=== PATIENT | female | born 2000 | race Caucasian/White ===

== ENCOUNTER 2022-04-06 19:14 | Emergency (ER) | payer OTHER, SELFPAY ==
[2022-04-06 19:28] VITALS: BP 128/81; PULSE 89; RESP 18; TEMP 37.1; O2SAT 100; BMI 41.6
--- NOTE | 2022-04-06 19:43 | ED.GENADULT ---
HPI - General Adult General Time Seen by Provider: 19:43 Date Seen: 04/06/22 Chief complaint: Abdominal Pain Stated complaint: Stomach & lower abdomin pain Time Seen by Provider: 04/06/22 19:40 Source: patient and RN notes reviewed Mode of arrival: ambulatory Limitations: no limitations History of Present Illness HPI narrative: Patient is a 21-year-old female coming in with nausea, no vomiting and significant diarrhea since Friday evening. She had some lower abdominal discomfort during the day on FridayApril 03. She did fine however until that evening when she develops significant nausea and diarrhea. Diarrhea has been nonbloody, no fevers. She does get some lower abdominal cramping and pain with the diarrhea. She has not been on any recent antibiotics, no travel, no history of C difficile colitis. She does milk dairy cattle, also goes to school. States she really has not been able to take any significant fluids in, has not been able to eat. She has only had 1 episode of urination today. She is feeling dehydrated, mom notes she was tearful prior to coming in which is not typical of her. Related Data Allergies Allergy/AdvReac Type Severity Reaction Status Date / Time No Known Drug Allergies Allergy Verified 04/06/22 19:27 Review of Systems Status of ROS: Reports: 6 or more systems reviewed and unremarkable except as noted in History and below PFSH PFS Social History Smoking Status: Never smoker Do you use any of these nicotine containing products: None Second hand tobacco smoke exposure: No How often do you have a drink containing alcohol: monthly or less How many standard drinks containing alcohol do you have on a typical day: 1 or 2 How often do you have six or more drinks on one occasion: Never AUDIT-C Alcohol total score: 1 Non-prescribed substance use: denies use service: No Exam Const: Vital Signs, click to edit/add: Vital Signs - 24 hr 04/06/22 19:28 04/06/22 20:29 Temperature 98.8 F Pulse Rate [Pulse Oximeter] 89 84 Respiratory Rate 18 20 Blood Pressure [Le ft Upper Arm] 128/81 116/70 Pulse Oximetry 100 100 Oxygen Delivery Me thod Room Air Room Air Documenting provider has reviewed patient's vital signs: yes Common normals: no apparent distress, oriented x3, no limitations, healthy appearing, alert and well nourished General appearance: cooperative, comfortable, well kempt and well developed Other: Overall is in no apparent distress but looks like she does not feel the best. Is pleasant with me, can speak in complete sentences. HENMT: Common normals: normocephalic, head/scalp atraumatic, hearing grossly normal bilaterally, external ears normal and nasal mucous membranes and turbinates normal Head and scalp: normocephalic and atraumatic Nose: nasal mucous membranes and turbinates normal External ear: external ears normal Other: No lesions in the oral mucosa or the tongue, membranes mildly dry but certainly lips are not cracked. Eye: Common normals: PERRL, EOMs intact bilaterally, conjunctivae normal and no scleral icterus Conjunctiva: conjunctiva(e) normal Pupil: PERRL Neck & C-Spine: Common normals: full ROM, no lymphadenopathy, supple, no meningeal signs, no JVD and thyroid normal Thyroid: thyroid normal Resp: Common normals: normal respiratory effort, no retractions, no use of accessory muscles and clear to auscultation bilaterally Auscultation: clear to auscultation bilaterally Cardio: Common normals: no JVD, regular rate, regular rhythm, S1 normal heart sound, S2 normal heart sound, no gallops, no clicks and no murmurs Rate: regular rate Rhythm: regular rhythm Heart sounds: S1 normal and S2 normal GI: Common normals: Normal to inspection, nondistended, normoactive bowel sounds present, soft to palpation, non-tender, no hepatosplenomegaly and no masses Palpation: soft and no hepatosplenomegaly Neuro: Common normals: oriented x3 Sensorium/orientation: alert Meningeal signs: no meningeal signs Psych: Appearance: well kempt Course Course Hospital Course: Will place an IV, obtain labs. She will get a L of normal saline and 4 mg IV Zofran. We reviewed that this likely is a viral gastroenteritis, will hold off any abdominal imaging at this time. Reevaluation(s) Reevaluation #1: Patient is feeling better, anti nausea medicine has worked. She has completed 1 L of fluids, still has not produced any urine. We will be obtaining a 2 L and will give her lactated Ringer's. She has relatively normal labs other than mildly reduced potassium of 3.3 which would go with her diarrheal illness. Discussed with him that I did not think any imaging would be necessary and actually radiation more harmful than the benefits we might obtain. I do think she has a viral gastroenteritis. They feel they have enough Zofran at home, decline a prescription tonight. Time: 20:59 Reevaluation #2: Patient has just a little over about 100 mL of her 2nd bag of IV fluids. She is starting to feel like she needs to urinate. If she does not urinate after the completion of this bag, will order another 500 mL bolus. Overall she is improved. Will discharged to home after we have completed her IV fluids. Time: 22:01 Vital Signs Vital signs: Initial Vital Signs Temperature 98.8 F 04/06/22 19:28 Temperature Source Temporal Artery Scan 04/06/22 19:28 Pulse Rate 89 04/06/22 19:28 Pulse Rhythm 04/06/22 19:28 Respiratory Rate 18 04/06/22 19:28 Blood Pressure 128/81 04/06/22 19:28 Blood Pressure Mean 96 04/06/22 19:28 Blood Pressure Position Sitting 04/06/22 19:28 Pulse Oximetry 100 04/06/22 19:28 Oxygen Delivery Method 04/06/22 19:28 Vital Signs Temperature 98.8 F 04/06/22 19:28 Pulse Rate 89 04/06/22 19:28 Respiratory Rate 18 04/06/22 19:28 Blood Pressure 128/81 04/06/22 19:28 Pulse Oximetry 100 04/06/22 19:28 Oxygen Delivery Method 04/06/22 19:28 Temperature 98.8 F 04/06/22 19:28 Pulse Rate 84 04/06/22 20:29 Respiratory Rate 20 04/06/22 20:29 Blood Pressure 116/70 04/06/22 20:29 Pulse Oximetry 100 04/06/22 20:29 Oxygen Delivery Method 04/06/22 20:29 Medical Decision Making Lab Data Lab results reviewed: Yes I reviewed the patient's lab results Labs: Lab Results 04/06/22 04/06/22 04/06/22 Range/Units 19:50 19:50 20:04 WBC 8.55 (4.50-11.00) K/uL RBC 4.86 (4.00-5.20) m/uL Hgb 13.5 (12.0-16.0) gm/dL Hct 40.1 (33.0-51.0) % MCV 83 (80-100) fL MCH 28 (26-34) pg MCHC 34 (32-36) gm/dL RDW Coeff of Josee 12.9 (11.5-15.5) % Plt Count 285 (140-440) K/uL Neut % (Auto) 68.0 (42.0-72.0) % Lymph % (Auto) 18.1 L (20-44) % Sterling % (Auto) 12.0 H (0.0-11.0) % Eos % (Auto) 1.6 (0.0-7.0) % Baso % (Auto) 0.2 (0.0-3.0) % Neut # (Auto) 5.80 (1.7-7.0) K/uL Lymph # (Auto) 1.50 (0.90-2.90) K/uL Sterling # (Auto) 1.00 H (0.00-0.90) K/UL Eos # (Auto) 0.14 (0.00-0.50) K/uL Baso # (Auto) 0.02 (0.00-0.30) K/uL Sodium 137 (135-149) mmol/L Potassium 3.3 L (3.6-5.1) mmol/L Chloride 105 (96-114) mmol/L Carbon Dioxide 25 (20-32) mmol/L BUN 9 (5-24) mg/dL Creatinine 0.6 (0.6-1.2) mg/dL Estimated Creat Clear 124.75 Estimated GFR 133 ml/min Glucose 91 (60-115) mg/dL Calcium 8.5 L (8.7-10.8) mg/dL Total Bilirubin 0.4 (0.1-1.5) mg/dL AST 25 (12-35) U/L ALT 21 (4-35) U/L Alkaline Phosphatase 75 (40-150) U/L C-Reactive Protein 2.8 H (0.5-1.0) mg/dL Total Protein 7.0 (6.0-8.3) g/dL Albumin 4.0 (3.3-5.0) g/dL SARS-CoV-2 (PCR) Negative SARS-CoV-2 (Negative) Influenza Type A (PCR) Negative PCR FLU A (Negative) Influenza Type B (PCR) Negative PCR FLU B (Negative) Critical Care Time Critical Care Time Critical Care Time: No Discharge Plan Discharge Clinical Impression: Gastroenteritis Patient Disposition: Home, Self-Care Condition: Stable Instructions: Gastroenteritis (ED), Nutrition Tips for Relief of Diarrhea (ED) Additional Instructions: Continue with Zofran at home as needed to help control nausea. Review handouts provided. Can increase your diet as tolerated with solid foods, follow the nutrition tips for relief of diarrhea handout. Drink frequent small sips of fluids to help you stay hydrated through this. If you are not improving over the next couple days, feel you are worsening at any point, do recommend re-evaluation. Activity Level: Activity as Tolerated Follow Up/Referrals: Belinda Ricci DO [Primary Care Provider] - Stand Alone Forms: v2 Ratingsth Info Instructions
[2022-04-06] MEDS: ONDANSETRON 2 MG/ML inj 4 MG IVP (20:04)
[2022-04-06] MEDS: 0.9 % SODIUM CHLORIDE 1000 ml 1,000 ML IV (20:04)
[2022-04-06 20:08] LABS: Basophils Absolute Auto 0.02 K/uL (0.00-0.30); Basophils Percent Auto 0.2 % (0.0-3.0); Eosinophils Absolute Auto 0.14 K/uL (0.00-0.50); Eosinophils Percent Auto 1.6 % (0.0-7.0); Hematocrit 40.1 % (33.0-51.0); Hemoglobin* 13.5 gm/dL (12.0-16.0); Immature Granulocytes Abs Auto 0.01 K/uL (0.00-0.30); Immature Granulocytes Pct Auto 0.1 %; Lymphocytes Percent Auto 18.1 % (20-44); Mean Corpuscular HGB Conc 34 gm/dL (32-36); Mean Corpuscular Hemoglobin 28 pg (26-34); Mean Corpuscular Volume 83 fL (80-100); Platelet Count* 285 K/uL (140-440); RDW Coefficient of Variation % 12.9 % (11.5-15.5); Red Blood Count 4.86 m/uL (4.00-5.20); White Blood Count* 8.55 K/uL (4.50-11.00)
[2022-04-06 20:10] LABS: Slide Review Reflex No
[2022-04-06 20:19] LABS: Chloride* 105 mmol/L (96-114)
[2022-04-06 20:20] LABS: Potassium* 3.3 mmol/L (3.6-5.1); Sodium* 137 mmol/L (135-149)
[2022-04-06 20:22] LABS: Creatinine* 0.6 mg/dL (0.6-1.2); Est. Creatinine Clearance* 124.75; Estimated Glomerular Filt Rate 133 ml/min
[2022-04-06 20:23] LABS: Alanine Aminotransferase* 21 U/L (4-35); Alkaline Phosphatase* 75 U/L (40-150); Aspartate Amino Transferase* 25 U/L (12-35); Bilirubin Total* 0.4 mg/dL (0.1-1.5); Blood Urea Nitrogen* 9 mg/dL (5-24); Calcium* 8.5 mg/dL (8.7-10.8); Carbon Dioxide* 25 mmol/L (20-32); Glucose* 91 mg/dL (60-115)
[2022-04-06 20:26] LABS: C Reactive Protein* 2.8 mg/dL (0.5-1.0)
[2022-04-06 20:29] VITALS: BP 116/70; PULSE 84; RESP 20; O2SAT 100
[2022-04-06 20:43] LABS: PCR FLU A Negative PCR FLU A (Negative); PCR FLU B Negative PCR FLU B (Negative)
[2022-04-06 20:45] LABS: SARS PCR* Negative SARS-CoV-2 (Negative)
[2022-04-06] MEDS: LACTATED RINGERS 1000 ML 1,000 ML IV (21:04)
== END 2022-04-06 22:34 | disposition home or self-care (01) ==
PROVIDERS: Emergency Provider Family Medicine; PCP Family Medicine
DX: K52.9 Noninfective gastroenteritis and colitis, unspecified (principal)
CPT/HCPCS: 36415; 80053; 85025; 86140; 87631; 96374; 99283; 99284; J2405; J7030; J7120

== ENCOUNTER 2024-10-03 15:34 | Emergency (ER) | payer OTHER, SELFPAY ==
--- OUTSIDE RECORDS SUMMARY | 2024-10-03 15:36 | XMS_ITS | Clinical Summary ---
Author Organization [employer] [facility] Address [address] [place] [id number] Care Team Providers Care Cottage Cheese Maker Name Role Phone Belinda Ricci DO Primary Care Provider [phone] Allergies Active Allergy Reactions Criticality Noted Date Comments Capsaicin *Unknown 10/20/2021 Camphor-Methyl Salicyl-Menthol Rash 03/01 Medications SUMAtriptan (IMITREX) 50 mg tabletIndications :Menstrual migraine with status migrainosus, not intractable Take 1 Tablet (50 mg) by mouth 2 times daily if needed for Migraine. Give at minimum 2hrs apart. Max Dose: 200mg per 24hrs. 10 Tablet 3 01/23/20 24 Active escitalopram oxalate (LEXAPRO) 10 mg tabletIndications :CHARLOTTE (generalized anxiety disorder) Take 1/2 tablet once daily for 1 week, then increase to 1 tablet once daily. 90 Tablet 3 03/11/19 25 Active hydrOXYzine HCL (ATARAX) 25 mg tabletIndications :Panic attack TAKE ONE OR TWO TABLETS BY MOUTH EVERY SIX HOURS NEEDED FOR ANXIETY 30 Tablet 2 03/11/19 25 Active ondansetron (ZOFRAN ODT) 4 mg disintegrating tabletIndications :Nausea and vomiting, unspecified vomiting type Place 1 Tablet (4 mg) on the tongue every 8 hours if needed for Nausea/Vomiting. 30 Tablet 1 03/11/19 25 Active omeprazole 40 mg Delayed-Release capsuleIndication s:Chronic GERD TAKE ONE CAPSULE BY MOUTH ONE TIME DAILY before a meal. 90 Capsule 07/08/19 25 Active HYDROcodone-aceta minophen (5-325 mg/tablet)Indicat ions:Injury of right shoulder, initial encounter Take 1 Tablet by mouth every 4 hours if needed for Pain. Max acetaminophen dose: 4000 mg in 24 hrs. 20 Tablet 08/06/19 25 Active naproxen 500 mg tabletIndications :Injury of right shoulder, initial encounter Take 1 Tablet (500 mg) by mouth every 12 hours if needed for Pain. 40 Tablet 08/06/19 25 025 Discontin ued(*Jenni ent states no longer taking) methylPREDNISolon e (Medrol (Adrian)) 4 mg tabletIndications :Type 1 superior labral uyhamxpb-zm-dxlxf rior (SLAP) tear of right shoulder, subsequent encounter Take by mouth as instructed per packaging. 21 Tablet 08/18/19 25 025 Discontin ued(*Jenni ent states no longer taking) trimethoprim-sulf amethoxazole 160-800 mg tabIndications:Ce llulitis of skin Take 1 Tablet by mouth two times daily for 10 days. 20 Tablet 09/09/19 25 025 Active Problems Problem Noted Date Diagnosed Date S/P carpal tunnel release 01/14/2023 Carpal tunnel syndrome of right wrist 08/19/2022 Carpal tunnel syndrome of left wrist 08/19/2022 POTS (postural orthostatic tachycardia syndrome) 06/07/2022 Menstrual migraine with status migrainosus, not intractable 06/07/2022 Generalized anxiety disorder 10/04/2020 Panic attack 10/04/2020 Encounters Date Type Department Care Team Description 09/09/2024 Travel 09/08/2024 7:10 AM CDT Office Visit [facility] [address] [place] [address] Noemi Lyons PA Leg Pain/problem (Right leg scrap x 2 weeks, red and pink. Constant pain, burning. Injured during softball. ) 09/08/2024 Travel 08/18/2024 10:20 AM CDT Procedure Only [facility] [address] [address] Benoit Jean MD Procedure (right shoulder biceps tendon sh... 08/18/2024 Travel 08/18/2024 Telephone [facility] [address] [address] Benoit Jean MD Appointment 08/17/2024 1:00 PM CDT [facility] [address] [facility] [address] [place] [address] Mello Carson MD Shoulder Pain/problem (right) 08/16/2024 Travel 08/11/2024 Orders Only [address] [address] Annelise Edmonds PA <No scans attached> 08/10/2024 4:15 PM CDT Ancillary Procedure [facility] [address] [facility] [address] [place] [address] 08/10/2024 Travel 08/06/2024 Travel 08/05/2024 2:15 PM CDT Ancillary Procedure [address] [address] 08/05/2024 1:50 PM CDT Office Visit [address] [address] Annelise Edmonds PA Shoulder Pain/problem (Hurt right shoulder Friday night during softball-heard a pop-had adjustment at chiro and was told pain would get better but getting worse-had swelling in arm also) 08/05/2024 Travel 08/05/2024 Nurse Triage [address] [address] Belinda Ricci, DO Shoulder Pain/problem 07/03/[address] [address] Annelise Edmonds PA Refill Request (Omeprazole) from Last 3 Months Immunizations Immunization Administration Dates Next Due DTaP 06/09/2007 DTaP-HIB (TriHIBIT) 08/27/2004 FNpS-GrhF-HSI (Pediarix) 04/22/2003,01/24/2003,1 HIB HbOC (HibTITER) 04/22/2003,01/24/2003,2002 HPV 9 (Gardasil 9) 06/07/2022,11/04/2019, 020 Hepatitis A (Peds) 10/19/2008,06/09/2007 Hepatitis B (Peds) 2002 Hepatitis B, Unspecified 2002 Inactivated Polio Vaccine 06/09/2007 Influenza Virus, Unspecified 10/19/2008 Influenza, IIV3 (Age 6-35 mos) 10/19/2008 Influenza,LAIV4 Live Intranasal (Flumist) 2013 MENINGOCOCCAL VACCINE 2 VIAL [id number] (MENVEO) 09/01/2019 MMR 11/07/2003 MMRV 06/09/2007 Meningococcal Vaccine (Menactra) 07/27/2014 Pneumococcal conj 7-Valent (Prevnar 7) 5,01/24/2003,2002 Tdap 07/27/2014 Varicella Vaccine 11/07/2003 Family History Medical History Relation Name Comments Good Health Father Aneurysm Maternal Grandfather on the wall of his heart Heart failure Maternal Grandfather Hypertension Maternal Grandfather Diabetes Maternal Grandmother Spondylolisthesis Mother Relation Name Status Comments Father Alive Maternal Grandfather Maternal Grandmother Mother Alive Sister 1 Alive Sister 2 Alive Social History Tobacco Use Types Packs/Day Years Used Date Smoking Tobacco: Never Smokeless Tobacco: Never Tobacco Cessation:Counseling Given: Yes Comments:No exposure Alcohol Use Standard Drinks/Week Comments Never 0 (1 standard drink = 0.6 oz pur e alcohol) PHQ-2 Answer Date Recorded PHQ-2 TOTAL SCORE 1 03/11/2024 Social Connections Answer Date Recorded Do you often feel lonely or isolated from those around you? 0 03/08/2024 Financial Resource Strain Answer Date R ecorded Difficulty of Paying Living Expenses 3 03/08/2024 Difficulty of Paying Living Expenses Not on file 03/08/2024 Food Insecurity Answer Date Recorded Do you worry your food will run out before you are able to buy more? 1 03/08/2024 Transportation Needs Answer Date Record ed Does lack of transportation keep you from medica l appointments? 1 03/08/2024 Does lack of transportation keep you from work, meetings or getting things that you need? 1 03/08/2024 Housing Stability Answer Date Recorded What is your housing situation today? 1 03/08/2024 Utilities Answer Date Recorded Do you have trouble paying f or utilities (for example, heat, electricity, water, phone)? 1 03/08/2024 Comments No Sex and Gender Information Value Date Recorded Sex Assigned at Not on file Legal Sex Female 4:26 PM CDT Gender Identity Not on file Sexual Orientation Not on file Obstetrics History Last Filed Vital Signs Vital Sign Reading Time Taken Comments Blood Pressure 131/76 09/08/2024 7:20 AM CDT Pulse 93 09/08/2024 7:20 AM CDT Temperature 36.8 C (98.3 F) 09/08/2024 7:20 AM CDT Respiratory Rate 16 09/11/2023 8:45 AM CDT Oxygen Saturation 99% 09/08/2024 7:20 AM CDT Inhaled Oxygen Concentration - - Weight 115.7 kg (255 lb) 09/08/2024 7:20 AM CDT Height 160 cm (5' 3) 09/08/2024 7:20 AM CDT Body Mass Index 45.17 09/08/2024 7:20 AM CDT Plan of Treatment Health Maintenance Due Date Last Done Comments HIV for age 15-65 2017 Hepatitis C screening for ag e 18-79 2020 Pneumococcal series for age 6-49 (1 of 2 - PCV) 2021 08/27/2004, 01/24/2003, 2002 Pap test for age 21-65 09/25/2023 COVID-19 vaccine series ( - season) 2023 Tetanus booster 07/27/2024 07/27/2014 Influenza Vaccine (#1) 2024 4, 10/19/2008, 10/19/2008 Depression screening for age 12+ 03/11/2025 03/11/2024, 09/08/2023, 07/08/2023, Additional history exists BMI (ht and wt on same day) for age 18+ 09/08/2025 09/08/2024, 06/07/2022, 05/21/2021, Additional history exists Hepatitis B series for 19+ Completed 04/21, 01/24/2003, 2002, Additional history exists HPV series for age 9-26 Completed 06/08/19 23, 11/04/2019, 09/01/2019 Procedures Procedure Name Priority Date/Time Associated Diagnosis Comments MR SHOULDER RIGHT WO BRANDI 08/10/2024 4:18 PM CDT Weakness of right shoulder XR SHOULDER 3 VIEWS RIGHT Routine 08/05/2024 2:28 PM CDT Injury of right shoulder, initial encounter from Last 3 Months Results * MR SHOULDER RIGHT WO (08/10/2024 4:18 PM CDT) Anatomical Region Laterality Modality SHOULDER R Magnetic Resonan ce 08/10/2024 6:24 PM CDT Impressions 08/10/2024 6:24 PM CDT 1. SLAP tear of the labrum. 2. Mild supraspinatus/infraspinatus and intra-articular long head of biceps tendinopathy. Dictated by Donald Tamez MD @ 08/10/2024 6:24:36 PM (Electronically Signed) Narrative 08/10/2024 6:24 PM CDT For Patients: As a result of the Cures Act, medical imaging exams and procedure reports are released immediately into your electronic medical record. You may view this report before your referring provider. If you have questions, please contact your health care provider. CLINICAL INDICATION: Right shoulder weakness in the context of trauma. COMPARISON IMAGING STUDIES: 08/05/2024 right shoulder radiographs TECHNICAL: Non-contrast MRI of the right shoulder. 1.5 Radha MR scanner. FINDINGS: GLENOHUMERAL JOINT: Effusion: Physiologic quantity of joint fluid. Humeral Head Articular Cartilage: Maintained. Glenoid Articular Cartilage: Maintained. Alignment: Maintained. Capsule: No capsular edema or abnormal capsular thickening. OSSEOUS STRUCTURES: No acute fracture. CORACOACROMIAL ARCH: Acromial Morphology: Type 2 acromial morphology. No abnormal lateral or anterior downward sloping of the acromion. No os acromiale. No significant subacromial spur. Lateral acromial thickness is 8 mm. Acromiohumeral Interval: At its narrowest, the interval measures 7 mm. No abnormal thickening of the coracoacromial ligament. Coracohumeral Interval: At its narrowest, the coracohumeral interval measures 13 mm. Coracoid index is 9 mm. ACROMIOCLAVICULAR JOINT REGION: AC joint intact. Coracoclavicular ligament intact. BURSAE: No abnormal bursal edema, thickening or bursal fluid. ROTATOR CUFF TENDONS AND MUSCLES AND DELTOID: Supraspinatus and Infraspinatus: Mild supraspinatus/infraspinatus tendinopathy. No muscular atrophy or edema. Teres Minor: No tendinosis, tendon tearing, muscle atrophy or muscle edema. Subscapularis: No tendinosis, tendon tearing, muscle atrophy or muscle edema. Deltoid: No muscle atrophy or edema. BICEPS TENDON, LONG HEAD: Mild intra-articular long head of biceps tendinopathy. No subluxation or dislocation of tendon from bicipital groove. GLENOID LABRUM: SLAP tear of the labrum (06/23). OTHER FINDINGS: There is no mass detected within the suprascapular or spinoglenoid notches nor within the quadrilateral space. No mass detected within the visualized portion of the axilla. Procedure Note Donald Tamez MD - 08/10/2024 For Patients: As a result of the Century Cures Act, medical imagingexams and procedure reports are released immediately into your electronicmedical record. You may view this report before your referring provider.If you have questions, please contact your health care provider. CLINICAL INDICATION: Right shoulder weakness in the context of trauma. COMPARISON IMAGING STUDIES: 08/05/2024 right shoulder radiographs TECHNICAL: Non-contrast MRI of the right shoulder. 1.5 Radha MR scanner. FINDINGS: GLENOHUMERAL JOINT: Effusion: Physiologic quantity of joint fluid. Humeral Head Articular Cartilage: Maintained. Glenoid Articular Cartilage: Maintained. Alignment: Maintained. Capsule: No capsular edema or abnormal capsular thickening. OSSEOUS STRUCTURES: No acute fracture. CORACOACROMIAL ARCH: Acromial Morphology: Type 2 acromial morphology. No abnormal lateral oranterior downward sloping of the acromion. No os acromiale. Nosignificant subacromial spur. Lateral acromial thickness is 8 mm. Acromiohumeral Interval: At its narrowest, the interval measures 7 mm. Noabnormal thickening of the coracoacromial ligament. Coracohumeral Interval: At its narrowest, the coracohumeral intervalmeasures 13 mm. Coracoid index is 9 mm. ACROMIOCLAVICULAR JOINT REGION: AC joint intact. Coracoclavicular ligament intact. BURSAE: No abnormal bursal edema, thickening or bursal fluid. ROTATOR CUFF TENDONS AND MUSCLES AND DELTOID: Supraspinatus and Infraspinatus: Mild supraspinatus/infraspinatustendinopathy. No muscular atrophy or edema. Teres Minor: No tendinosis, tendon tearing, muscle atrophy or muscleedema. Subscapularis: No tendinosis, tendon tearing, muscle atrophy or muscleedema. Deltoid: No muscle atrophy or edema. BICEPS TENDON, LONG HEAD: Mild intra-articular long head of biceps tendinopathy. No subluxation ordislocation of tendon from bicipital groove. GLENOID LABRUM: SLAP tear of the labrum (/). OTHER FINDINGS: There is no mass detected within the suprascapular or spinoglenoid notchesnor within the quadrilateral space. No mass detected within thevisualized portion of the axilla. IMPRESSION: 1. SLAP tear of the labrum. 2. Mild supraspinatus/infraspinatus and intra-articular long head ofbiceps tendinopathy. Dictated by Donald Tamez MD @ 08/10/2024 6:24:36 PM (Electronically Signed) us Annelise JACOB MR Final Resu lt * XR SHOULDER 3 VIEWS RIGHT (08/05/2024 2:28 PM CDT) Anatomical Region Laterality Modality SHOULDERS, SHOULDER R Computed R adiography 08/05/2024 2:32 PM CDT Narrative 08/05/2024 2:32 PM CDT For Patients: As a result of the 21st Century Cures Act, medical imaging exams and procedure reports are released immediately into your electronic medical record. You may view this report before your referring provider. If you have questions, please contact your health care provider. Indication: Injury of right shoulder, initial encounter. Technique: Right shoulder 3 views. Comparison: 08/18/2020 Findings: Bones: Alignment is normal. No fractures or bone lesions. Joint spaces: Unremarkable. Soft tissues: Unremarkable. Impression: No sign of acute injury. Dictated by Dedrick Tee MD @ 08/05/2024 2:32:30 PM (Electronically Signed) Procedure Note Dedrick Tee MD - 08/05/2024 For Patients: As a result of the Cures Act, medical imagingexams and procedure reports are released immediately into your electronicmedical record. You may view this report before your referring provider.If you have questions, please contact your health care provider. Indication: Injury of right shoulder, initial encounter. Technique: Right shoulder 3 views. Comparison: 08/18/2020 Findings: Bones: Alignment is normal. No fractures or bone lesions. Joint spaces: Unremarkable. Soft tissues: Unremarkable. Impression: No sign of acute injury. Dictated by Dedrick Tee MD @ 08/05/2024 2:32:30 PM (Electronically Signed) Annelise JAC[facility] GENERAL IMAGING Final Resu lt from Last 3 Months Insurance MEDICA CHOICE Advance Directives * Full Code (Latest Code Status on File) Date Activated Date Inactivated Comments 09/11/2023 6:27 AM 09/11/2023 12:08 PM Question Answer Comments Code Status Discussion: Reviewed Preferences * Full Code Date Activated Date Inactivated Comments 10/23/2022 6:28 AM 10/23/2022 11:01 AM Question Answer Comments Code Status Discussion: Reviewed Preferences * Full Code Date Activated Date Inactivated Comments 09/26/2022 8:29 AM 09/26/2022 1:01 PM Question Answer Comments Code Status Discussion: Reviewed Preferences Care Teams Cottage Cheese Maker Relationship Specialty Start Date End Date Belinda Ricci DO [address] [place] [address] PCP - General Family Practice 05/21/21
--- OUTSIDE RECORDS SUMMARY | 2024-10-03 15:36 | XMS_ITS | Clinical Summary ---
Author Organization [facility] Address [address] , [address] [place] [address] Phone Care Team Providers Care Marine Resource Economist Name Role Phone [facility] Unavailable Unava ilable Conditions or Problems Problem Name Problem Code Onset Date Status Entry Date Provider Comment Standard Description Annotate Hand numbness 331431730 (SNOMED CT) Active Jeison Mckeon MD Numbness of hand Other lesions of median nerve, bilateral upper limbs [id number] (SNOMED CT) Active Jeison Mckeon MD Lesion of median nerve Medications No information available. Medications Administered No information available. Allergies, Adverse Reactions, Alerts No information available. Results Date Name Value Unit Range Flag Description Lab Report: 08/18/20 - 02/20/21 ABSOLUTE MON 0.6 10*3/uL Monocyte s [#/volume] in Blood EGFR NOT AFA >60 mL/min/1.73m 2 Glomerular filtratio n rate/1.73 sq M.predicted among non-blacks [Volume Rate/Area] in Serum, Plasma or Blood by Creatinine-based formula (MDRD) ABS EOS 0.1 {Cells}/uL Eosinophil s [#/volume] in Blood CA 9.2 mg/dL Calcium [Mass /volume] in Serum or Plasma ABSOLUTE BAS normal 10*3/uL Basophil s [#/volume] in Blood ABS LYMPHOCY 2.1 10*3/uL Absolute Lymphocytes ABS NEUTROPH 4.8 10*3/uL Neutroph ils [#/volume] in Blood GFR >60 mL/min Glomerular fi ltration rate/1.73 sq M.predicted among non-blacks [Volume Rate/Area] in Serum, Plasma or Blood by Creatinine-based formula (MDRD) LYMPHS % 27.0 % Lymphocytes/ 100 leukocytes in Blood by Automated count % BASO AUTO 0.3 % basophils as percent of blood leukocytes, automated count % EOS AUTO 1.6 % Eosinophil s/100 leukocytes in Blood by Automated count CO2 TOTAL 25 mmol/L carbon diox sriram, serum, total GLUCOSE SER 94 mg/dL Glucose [ Mass/volume] in Serum or Plasma MPV 10.2 fL Platelet mean volume [Entitic volume] in Blood by Jose BUN/CREAT 16 Urea nitrogen/Creatinine [Mass Ratio] in Serum or Plasma MONOCYTE % 8.3 % Monocytes/ 100 leukocytes in Blood by Automated count MCH 28.9 pg MCH [Entitic mass] by Automated count RDW 13.3 % Erythrocyte distribution width [Ratio] by Automated count MCHC 33.4 % MCHC [Mass/vo lume] by Automated count PMN % 62.8 % Neutrophils/1 00 leukocytes in Blood by Automated count MCV 86 fL MCV [Entitic volume] by Automated count ANION GAP 8 Anion gap 4 in Serum or Plasma SODIUM 140 mmol/L Sodium [Moles /volume] in Serum or Plasma WBC 7.7 10*3/mm3 Leukocytes [ #/volume] in Blood by Automated count RBC 4.54 10*6/mm3 Erythrocytes [#/volume] in Blood by Automated count PLATELETS 312 10*3/mm3 Platelets [#/volume] in Blood by Automated count HGB 13.1 g/dL Hemoglobin [Mass/volume] in Blood HCT 39.2 % Hematocrit [V olume Fraction] of Blood by Automated count POTASSIUM 3.7 mmol/L Potassium [Moles/volume] in Serum or Plasma CREATININE 0.70 mg/dL Creatinine [Mass/volume] in Serum or Plasma CHLORIDE 107 mmol/L Chloride [Moles/volume] in Serum or Plasma BUN 11 mg/dL Urea nitrogen [Mass/volume] in Serum or Plasma Internal Other: Authorizatio n - OBS [email or web address] Yes Authoriza tion: Release of Information - Authorize [facility] - Payment and Healthcare Operations [email or web address] Yes Authoriz ation: Release of Information - Authorize Others/Insurance - Payment and Healthcare Operations HIECONSENT Yes Consent To Release information to the Health Information Exchange (HIE) [email or web address] Yes Authorizat ion: Authorization for [facility] to leave messages, voicemail, send text messages, send emails AUTHRELHCARE Yes Authoriz ation: Release/Retrieval of Information to/from Healthcare Facilities, Pharmacy Benefit Payers and Providers AUTHPRIVPRAC Yes Authoriz ation: Notice of privacy practices AUTHBENEFIT Yes Authoriza tion: Assignment of Benefits and Payment Agreement Plan of Care No information available. Procedures Code Procedure Name Date Entry Date CPT-43008 Nerve Conduction 13 or more studies 08/07 CPT-81818 EMG with NCS (5+ muscles) - 2 limbs 08/07 Vital Signs Date Name Value Unit Description Height 62.99 [in_us] height E&M Body Temperature 37.5 [degF] temperat ure E&M BP Diastolic 74 mm[Hg] blood pressu re, diastolic BP Systolic 131 mm[Hg] blood pressur e, systolic Heart Rate 119 /min pulse rate Respiratory Rate 18 /min respirat ory rate E&M Weight Measured 98.884 kg weight in kilograms E&M Immunizations No information available. Advance Directives No information available.
[2024-10-03 15:42] VITALS: BP 128/85; PULSE 75; RESP 18; TEMP 36.6; O2SAT 99; BMI 45.2
--- NOTE | 2024-10-03 15:59 | ED.GENADULT ---
HPI - General Adult General Date Seen: 10/03/24 Chief complaint: Laceration/Wound Stated complaint: R thumb lac Time Seen by Provider: 10/03/24 15:39 History of Present Illness HPI narrative: Patient is a 24-year-old generally healthy young woman here with her mom for evaluation of a laceration of her right thumb. She was slicing cabbage on a mandoline and she cut off a small piece of the finger on her right thumb. They were not able to get it to stop bleeding at home. No other complaints. Related Data Home Medications ?Medication ?Instructions ?Recorded ?Confirmed escitalopram oxalate 10 mg tablet mg PO 10/03/24 hydroxyzine HCl 25 mg tablet 25 - 50 mg PO Q6H PRN anxiety 10/03/24 10/03/24 omeprazole 40 mg capsule,delayed 40 mg PO DAILY 10/03/24 10/03/24 release sumatriptan succinate 50 mg tablet 50 mg PO Q2H PRN migraine 10/03/24 10/03/24 Allergies Allergy/AdvReac Type Severity Reaction Status Date / Time No Known Drug Allergies Allergy Verified 04/06/22 19:27 PFSH PFS Social History Smoking Status: Never smoker Do you use any of these nicotine containing products: None Second hand tobacco smoke exposure: No How often do you have a drink containing alcohol: monthly or less How many standard drinks containing alcohol do you have on a typical day: 1 or 2 How often do you have six or more drinks on one occasion: Never AUDIT-C Alcohol total score: 1 Non-prescribed substance use: denies use service: No Exam Narrative: Exam Narrative: Vital signs reviewed In general, alert, well-appearing young woman. Extremities: Examination of the right thumb shows a small avulsion with some venous oozing. Const: Vital Signs, click to edit/add: Vital Signs - 24 hr 10/03/24 15:42 Temperature 97.8 F Pulse Rate [Right Pulse Oximeter] 75 Respiratory Rate 18 Blood Pressure [Ri ght Upper Arm] 128/85 Pulse Oximetry 99 Oxygen Delivery Me thod Room Air Course Course ED Course: Will apply some Surgicel foam, bacitracin, tube gauze. Recommend leaving this on for couple of days to let this stabilized and then gently removing. Return at any time for signs of infection. Routine wound care discussed. Vital Signs Vital signs: Initial Vital Signs Temperature 97.8 F 10/03/24 15:42 Temperature Source Temporal Artery Scan 10/03/24 15:42 Pulse Rate 75 10/03/24 15:42 Respiratory Rate 18 10/03/24 15:42 Blood Pressure 128/85 10/03/24 15:42 Blood Pressure Mean 99 10/03/24 15:42 Blood Pressure Position Sitting 10/03/24 15:42 Pulse Oximetry 99 10/03/24 15:42 Oxygen Delivery Method Room Air 10/03/24 15:42 Vital Signs Temperature 97.8 F 10/03/24 15:42 Pulse Rate 75 10/03/24 15:42 Respiratory Rate 18 10/03/24 15:42 Blood Pressure 128/85 10/03/24 15:42 Pulse Oximetry 99 10/03/24 15:42 Oxygen Delivery Method Room Air 10/03/24 15:42 Temperature 97.8 F 10/03/24 15:42 Pulse Rate 75 10/03/24 15:42 Respiratory Rate 18 10/03/24 15:42 Blood Pressure 128/85 10/03/24 15:42 Pulse Oximetry 99 10/03/24 15:42 Oxygen Delivery Method Room Air 10/03/24 15:42 Discharge Plan Discharge Clinical Impression: Avulsion of finger tip Patient Disposition: Home, Self-Care Condition: Stable Instructions: Acute Wounds (ED) Additional Instructions: As discussed, I would recommend leaving this dressing on for couple of days and then gently removed. At that time you can cover with a little antibiotic ointment, Vaseline or Aquaphor, and a Band-Aid. I would keep some kind of ointment on this while it heals, which will likely take 1-2 weeks. If you have signs of infection such as increasing redness, swelling, pain, or purulent drainage, return for re-evaluation. Prescriptions: No Action sumatriptan succinate 50 mg tablet 50 mg PO Q2H PRN (Reason: migraine) omeprazole 40 mg capsule,delayed release(DR/EC) 40 mg PO DAILY hydroxyzine HCl 25 mg tablet 25 - 50 mg PO Q6H PRN (Reason: anxiety) escitalopram oxalate 10 mg tablet PO Follow Up/Referrals: Belinda Ricci DO [Primary Care Provider, Family Practice] Stand Alone Forms: [employer] Info Instructions
--- OUTSIDE RECORDS SUMMARY | 2024-10-03 16:10 | XMS_ITS | Clinical Summary ---
Author Organization [facility] Address [address] , [address] [place] [address] Phone Care Team Providers Care Manager Non Profit Name Role Phone [facility] Unavailable Unava ilable Conditions or Problems Problem Name Problem Code Onset Date Status Entry Date Provider Comment Standard Description Annotate Hand numbness [id number] (SNOMED CT) Active Jeison Mckeon MD Numbness of hand Other lesions of median nerve, bilateral upper limbs [id number] (SNOMED CT) Active Jeison Mckeon MD Lesion [...] Procedures Code Procedure Name Date Entry Date CPT-42628 Nerve Conduction 13 or more studies 08/07 CPT-44470 EMG with NCS (5+ muscles) - 2 [...]
== END 2024-10-03 16:24 | disposition home or self-care (01) ==
PROVIDERS: Emergency Provider Emergency Medicine; PCP Family Medicine
DX: S61.101A Unspecified open wound of right thumb with damage to nail, initial encounter (principal); W26.0XXA Contact with knife, initial encounter
CPT/HCPCS: 99282; 99283